=== PATIENT | female | born 1995 ===

== ENCOUNTER 2017-05-18 09:31 | Emergency (ER) | payer SELFPAY ==
[2017-05-18 09:41] VITALS: RESP 16; O2SAT 100; BMI 19.8
[2017-05-18] MEDS ORDERED: Amoxicillin-Clav 875-125 mg Tab PO STA (10:58)
--- NOTE | 2017-05-18 11:03 | ED PDOC ---
HPI: CCC, URI, Sore Throat Time Seen by Provider: 05/18/17 10:03 Chief Complaint (Nursing): ENT Problem Chief Complaint (Provider): Sore throat History Per: Patient Additional Complaint(s): 21 yo female, no PMH, presents to ED with complaints of "throat pain, difficulty swallowing, headache, fever and generalized body aches since yesterday." has been taking Ibuprofen every 8hours, no relief Past Medical History Reviewed: Nursing Documentation, Vital Signs Vital Signs: Last Vital Signs Temp 102 F H 05/18/17 09:40 Pulse 129 H 05/18/17 09:40 Resp 16 05/18/17 09:40 BP 115/65 05/18/17 09:40 Pulse Ox 100 05/18/17 09:40 - Medical History PMH: No Chronic Diseases - Surgical History Surgical History: No Surg Hx - Family History Family History: States: No Known Family Hx - Living Arrangements Living Arrangements: With Family - Social History Current smoker - smoking cessation education provided: No Ex-Smoker (has not smoked in the last 12 months): No Alcohol: None Drugs: Denies - Home Medications Home Medications: Ambulatory Orders Medication Instructions Recorded Amoxicillin/Clavulanate [Augmentin 1 tab PO BID #14 tab 05/18/17 875 MG-125 MG] Ibuprofen [Motrin] 600 mg PO Q6 #20 tab 05/18/17 - Allergies Allergies/Adverse Reactions: Allergies Allergy/AdvReac Type Severity Reaction Status Date / Time No Known Allergies Allergy Verified 05/18/17 09:51 Review of Systems ROS Statement: Except As Marked, All Systems Reviewed And Found Negative Constitutional: Positive for: Fever ENT: Positive for: Throat Pain Physical Exam - Reviewed Nursing Documentation Reviewed: Yes Vital Signs Reviewed: Yes - Physical Exam Appears: Positive for: Well, Non-toxic, No Acute Distress Head Exam: Positive for: ATRAUMATIC, NORMAL INSPECTION, NORMOCEPHALIC Skin: Positive for: Normal Color, Warm, DRY Eye Exam: Positive for: EOMI, Normal appearance, PERRL ENT: Positive for: TM Is/Are (WNL), Pharyngeal Erythema, Tonsillar Exudate, Tonsillar Swelling Neck: Positive for: Normal, Painless ROM Cardiovascular/Chest: Positive for: Regular Rate, Rhythm Respiratory: Positive for: CNT, Normal Breath Sounds Gastrointestinal/Abdominal: Positive for: Normal Exam, Bowel Sounds, Soft Back: Positive for: Normal Inspection Extremity: Positive for: Normal ROM Neurologic/Psych: Positive for: Alert, Oriented - ECG O2 Sat by Pulse Oximetry: 100 Medical Decision Making Medical Decision Making: Medicated with Acetaminophen and Augmentin Advised to take medications as directed. Return to ED with any concerns. Disposition - Clinical Impression Clinical Impression: Streptococcal sore throat - Patient ED Disposition Is Patient to be Admitted: No - Disposition Disposition: Routine/Home Disposition Time: 10:30 Condition: STABLE Prescriptions: Amoxicillin/Clavulanate [Augmentin 875 MG-125 MG] 1 tab PO BID #14 tab Ibuprofen [Motrin] 600 mg PO Q6 #20 tab Instructions: Pharyngitis (ED) - POA Present On Arrival: None
[2017-05-18] MEDS ORDERED: Amoxicillin-Clav 875-125 mg Tab PO ONE (11:11)
[2017-05-18 11:45] VITALS: BP 116/75; PULSE 92; TEMP 100.2
== END 2017-05-18 11:30 | disposition home or self-care (01) ==
LOC: H.ER 09:31
DX: J02.0 Streptococcal pharyngitis (principal)

== ENCOUNTER 2017-06-07 13:48 | Emergency (ER) | payer SELFPAY ==
[2017-06-07 13:49] VITALS: BMI 19.8
[2017-06-07 14:05] VITALS: BP 118/70; PULSE 106; RESP 18; TEMP 98; O2SAT 99
--- NOTE | 2017-06-07 14:41 | ED PDOC ---
HPI: Abdomen Time Seen by Provider: 06/07/17 14:06 Chief Complaint (Nursing): GI Problem Chief Complaint (Provider): abd pain/vomiting History Per: Patient, Family (mother) History/Exam Limitations: no limitations Onset/Duration Of Symptoms: Hrs Outside of [place] travel?: No Current Symptoms Are (Timing): Better Context: Other (abx use) Location Of Pain/Discomfort: Epigastric Associated Symptoms: Nausea, Vomiting Last Bowel Movement: Yesterday Additional Complaint(s): 22 y/o F with no significant PMHx presents to ED for abd pain, vomiting and a syncope episode after starting treatment for H.Pylori infection this morning. Patient states she took AMoxicillin, Clarythromicin, Omeprazole plus 2 tabs of Zithromax for "UTI" and right after she started feeling nauseated, with epigastric pain had 1 episode of vomiting, blurry vision followed by 1 episode of syncope that lasted around 2 min with no urinary incontinence or involuntary movements. Patient remember everything before the syncope and after. Since then she Had 2 more episodes of NBNB vomiting and epigastric pain and nausea. Abnormal Vaginal Bleeding: No Last Menstral Period: 05/19/17 Past Medical History Reviewed: Nursing Documentation, Vital Signs Vital Signs: Last Vital Signs Temp 98.0 F 06/07/17 14:01 Pulse 106 H 06/07/17 14:01 Resp 18 06/07/17 14:01 BP 118/70 06/07/17 14:01 Pulse Ox 99 06/07/17 15:06 - Medical History PMH: No Chronic Diseases - Surgical History Surgical History: No Surg Hx - Family History Family History: States: No Known Family Hx - Social History Current smoker - smoking cessation education provided: No Alcohol: None Drugs: Denies - Home Medications Home Medications: Ambulatory Orders Medication Instructions Recorded Amoxicillin/Clavulanate [Augmentin 1 tab PO BID #14 tab 05/18/17 875 MG-125 MG] Ibuprofen [Motrin] 600 mg PO Q6 #20 tab 05/18/17 Ondansetron ODT [Zofran ODT] 4 mg PO Q8H PRN #20 odt 06/07/17 - Allergies Allergies/Adverse Reactions: Allergies Allergy/AdvReac Type Severity Reaction Status Date / Time No Known Allergies Allergy Verified 05/18/17 09:51 Review of Systems ROS Statement: Except As Marked, All Systems Reviewed And Found Negative Gastrointestinal: Positive for: Nausea, Vomiting, Abdominal Pain Physical Exam - Reviewed Nursing Documentation Reviewed: Yes Vital Signs Reviewed: Yes - Physical Exam Appears: Positive for: Non-toxic, No Acute Distress Head Exam: Positive for: ATRAUMATIC Skin: Positive for: Warm Eye Exam: Positive for: EOMI, PERRL Cardiovascular/Chest: Positive for: Regular Rate, Rhythm. Negative for: Gallop , Murmur Respiratory: Positive for: Normal Breath Sounds. Negative for: Crackles, Wheezing Gastrointestinal/Abdominal: Positive for: Soft, Tenderness (Epigastric). Negative for: Distended, Guarding Extremity: Positive for: Normal ROM. Negative for: Tenderness Neurologic/Psych: Positive for: Alert, Oriented. Negative for: Motor/Sensory Deficits - Laboratory Results Result Diagrams: 06/07/17 14:41 06/07/17 14:41 - ECG O2 Sat by Pulse Oximetry: 99 - Progress ED Course And Treament: Blood work and Abd US WNL Patient pain and nausea resolved after IV fluids and Zofran She will be DC from hosp and F/U as outpatient at [facility] C/W Omeprazole PO. Medical Decision Making Medical Decision Makin22 y/o F presents for abd pain associated with nausea and vomiting Acute abd pain POss acute gastritis R/O pancreatitis and Cholescystitis IV fluids ZOfran IV CBC, CMP, Lipase Abd US S/P Vasovagal Syncope resolved. Patient asymptomatic at the time of DC from ED Disposition - Clinical Impression Clinical Impression: Gastritis - Patient ED Disposition Is Patient to be Admitted: No - Disposition Referrals: [facility] [Outside] Disposition: Routine/Home Disposition Time: 17:10 Condition: IMPROVED Prescriptions: Ondansetron ODT [Zofran ODT] 4 mg PO Q8H PRN #20 odt PRN Reason: Nausea/Vomiting Instructions: Gastritis (ED) Forms: [employer] (Estonian) Print Language: VIETNAMESE
[2017-06-07] MEDS ORDERED: Sodium Chloride 0.9% 1,000 ML IV SCH (14:45)
[2017-06-07 14:52] LABS: HEMOGLOBIN 12.4 g/dL (12.0-16.0); MEAN CELL VOLUME 83.4 fl (81.0-99.0); MEAN CORPUSCULAR HEMOGLOBIN 27.4 pg (27.0-31.0); MEAN CORPUSCULAR HGB CONC 32.8 g/dL (33.0-37.0); RBC 4.53 Mil/uL (3.80-5.20); RED CELL DISTRIBUTION WIDTH 14.1 % (11.5-14.5); WHITE BLOOD COUNT 9.3 K/uL (4.8-10.8)
[2017-06-07 15:02] LABS: ALB/GLOB RATIO 1.5 (1.0-2.1); ALBUMIN 4.7 g/dL (3.5-5.0); ALT/SGPT 34 U/L (9-52); AST/SGOT 20 U/L (14-36); BLOOD UREA NITROGEN 13 mg/dl (7-17); CALCIUM 9.7 mg/dL (8.4-10.2); GFR AFRICAN-AMERICAN > 60; GFR NON-AFRICAN AMERICAN > 60; LIPASE 225 U/L (23-300)
--- NOTE | 2017-06-07 16:51 | US ---
HISTORY: Abd pain/vomiting COMPARISON: None. TECHNIQUE: Sonographic evaluation of the right upper quadrant of the abdomen. FINDINGS: LIVER: Measures 12.7 cm in length. Normal echogenicity of the liver parenchyma. No mass. No intrahepatic bile duct dilatation. GALLBLADDER: Unremarkable. No gallstones. COMMON BILE DUCT: Measures 2.0 mm. No stones. No dilatation. PANCREAS: Unremarkable as visualized. No mass. No ductal dilatation. RIGHT KIDNEY: Measures 9.7 cm in length. Normal echogenicity. No calculus, mass, or hydronephrosis. AORTA: No aneurysmal dilatation. IVC: Unremarkable. OTHER FINDINGS: None . IMPRESSION: Unremarkable right upper quadrant ultrasound as defined above.
== END 2017-06-07 17:30 | disposition home or self-care (01) ==
LOC: H.ER 13:48
DX: K29.70 Gastritis, unspecified, without bleeding (principal)

== ENCOUNTER 2017-10-28 07:51 | Emergency (ER) | payer SELFPAY ==
[2017-10-28 07:55] VITALS: TEMP 98
[2017-10-28 07:56] VITALS: BMI 21.1
[2017-10-28 08:02] VITALS: O2SAT 98
[2017-10-28] MEDS ORDERED: Sodium Chloride 0.9% 1,000 ML IV STA (08:20)
--- NOTE | 2017-10-28 08:22 | ED PDOC ---
HPI: Abdomen Time Seen by Provider: 10/28/17 08:03 Chief Complaint (Nursing): Abdominal Pain Chief Complaint (Provider): Abdominal Pain History Per: Patient History/Exam Limitations: no limitations Onset/Duration Of Symptoms: Hrs Current Symptoms Are (Timing): Still Present Additional Complaint(s): Gema Arizmendi is a 22 year old female that presents to the ED with a chief complaint of nonbloody vomiting and nonbloody diarrhea that began yesterday. Patient denies any fever or genitourinary symptoms. Past Medical History Reviewed: Historical Data, Nursing Documentation, Vital Signs Vital Signs: Last Vital Signs Temp 98 F 10/28/17 10:45 Pulse 70 10/28/17 10:45 Resp 20 10/28/17 10:45 BP 112/74 10/28/17 10:45 Pulse Ox 98 10/28/17 10:45 - Medical History PMH: No Chronic Diseases - Surgical History Surgical History: No Surg Hx - Family History Family History: States: Unknown Family Hx - Immunization History Hx Tetanus Toxoid Vaccination: Yes - Home Medications Home Medications: Ambulatory Orders Medication Instructions Recorded Amoxicillin/Clavulanate [Augmentin 1 tab PO BID #14 tab 05/18/17 875 MG-125 MG] Ibuprofen [Motrin] 600 mg PO Q6 #20 tab 05/18/17 Ondansetron ODT [Zofran ODT] 4 mg PO Q8H PRN #20 odt 06/07/17 Famotidine [Pepcid] 20 mg PO BID #20 tab 10/28/17 Ondansetron [Zofran Odt] 4 mg PO Q8H PRN #15 odt 10/28/17 - Allergies Allergies/Adverse Reactions: Allergies Allergy/AdvReac Type Severity Reaction Status Date / Time No Known Allergies Allergy Verified 10/28/17 08:00 Review of Systems Constitutional: Negative for: Fever Gastrointestinal: Positive for: Vomiting (nonbloody), Diarrhea (nonbloody) Genitourinary Female: Negative for: Dysuria, Frequency, Incontinence, Hematuria , Vaginal Discharge, Vaginal Bleeding Physical Exam - Reviewed Nursing Documentation Reviewed: Yes Vital Signs Reviewed: Yes - Physical Exam Appears: Positive for: Non-toxic, No Acute Distress Head Exam: Positive for: ATRAUMATIC, NORMOCEPHALIC Skin: Positive for: Normal Color, Warm Eye Exam: Positive for: Normal appearance, EOMI, PERRL Cardiovascular/Chest: Positive for: Regular Rate, Rhythm. Negative for: Murmur Respiratory: Positive for: Normal Breath Sounds. Negative for: Wheezing Gastrointestinal/Abdominal: Positive for: Tenderness (RUQ and mild epigastric TTP). Negative for: Normal Exam, Guarding, Rebound Back: Positive for: Normal Inspection. Negative for: L CVA Tenderness, R CVA Tenderness Extremity: Positive for: Normal ROM. Negative for: Tenderness, Swelling Neurologic/Psych: Positive for: Alert, Oriented. Negative for: Motor/Sensory Deficits - Laboratory Results Result Diagrams: 10/28/17 08:28 10/28/17 08:28 - ECG O2 Sat by Pulse Oximetry: 98 (RA) Pulse Ox Interpretation: Normal Medical Decision Making Medical Decision Making: Impression: Gastroenteritis vs. Cholecystitis vs. Cholelithiasis Plan: * US Abdomen Limited * CMP * CBC * Lipase * Urine Dip * Urine Preg * Zofran 4 mg Inj * NaCl 1000 mLs at 1000 mLs/hr * Reevaluation US Abdomen FINDINGS: LIVER: Measures 14.9 cm in length. Patent portal vein. Portal venous flow: Hepatopetal. Unremarkeable echogenicity of the liver parenchyma. No mass. No intrahepatic bile duct dilatation. GALLBLADDER: Unremarkable. No gallstones. COMMON BILE DUCT: Measures 2.8 mm. No stones. No dilatation. PANCREAS: Unremarkable as visualized. No mass. No ductal dilatation. RIGHT KIDNEY: Measures 3.9 x 5.9 x 9.8 cm in length. Normal echogenicity. No calculus, mass, or hydronephrosis. AORTA: No aneurysmal dilatation. IVC: Unremarkable. OTHER FINDINGS: None . IMPRESSION: No significant or acute findings to account for/ related to the clinical presentation. No significant interval change compared to the prior examination(s ). Scribe Attestation: Documented by Nayana Velasquez, acting as a scribe for Kayy Gutierrez MD. Provider Scribe Attestation: All medical record entries made by the Scribe were at my direction and personally dictated by me. I have reviewed the chart and agree that the record accurately reflects my personal performance of the history, physical exam, medical decision making, and the department course for this patient. I have also personally directed, reviewed, and agree with the discharge instructions and disposition. Disposition - Clinical Impression Clinical Impression: Gastroenteritis - Disposition Referrals: formerly [facility] [Outside] Disposition: Routine/Home Disposition Time: 10:34 Condition: IMPROVED Prescriptions: Famotidine [Pepcid] 20 mg PO BID #20 tab Ondansetron [Zofran Odt] 4 mg PO Q8H PRN #15 odt PRN Reason: Nausea/Vomiting Instructions: Gastroenteritis (ED) Forms: [employer] (Paraguayan) Print Language: BAHRAINI
[2017-10-28 08:36] LABS: BASO % 0.2 % (0.0-2.0); EOS # 0.2 K/uL (0.0-0.7); EOS % 1.4 % (0.0-4.0); HEMOGLOBIN 13.2 g/dL (12.0-16.0); LYMPH # 0.9 K/uL (1.0-4.3); MEAN CORPUSCULAR HGB CONC 32.2 g/dL (33.0-37.0); MEAN PLATELET VOLUME 8.5 fl (7.2-11.7); MONO # 0.9 K/uL (0.0-0.8); MONO % 6.5 % (0.0-10.0); NEUT # 12.3 K/uL (1.8-7.0); NEUT % 85.9 % (50.0-75.0); PLATELET COUNT 336 K/uL (130-400); RBC 4.89 Mil/uL (3.80-5.20); RED CELL DISTRIBUTION WIDTH 13.9 % (11.5-14.5); WHITE BLOOD COUNT 14.3 K/uL (4.8-10.8)
[2017-10-28 08:42] LABS: ALT/SGPT 35 U/L (9-52); AST/SGOT 22 U/L (14-36); BLOOD UREA NITROGEN 19 mg/dl (7-17); CALCIUM 9.5 mg/dL (8.4-10.2); GFR AFRICAN-AMERICAN > 60; GFR NON-AFRICAN AMERICAN > 60; LIPASE 133 U/L (23-300)
[2017-10-28 08:46] LABS: ALB/GLOB RATIO 1.4 (1.0-2.1)
[2017-10-28 09:28] LABS: ANISOCYTOSIS SLIGHT; BANDS 1 % (0-2); BASOPHIL 1 % (0-2); LYMPHOCYTE 7 % (20-50); PLATELET ESTIMATE NORMAL (NORMAL); TOTAL CELLS COUNTED 100
[2017-10-28 09:31] LABS: MONOCYTE 6 % (0-10); NEUTROPHIL 85 % (42-75)
--- NOTE | 2017-10-28 10:08 | US ---
HISTORY: Epigastric/RUQ pain COMPARISON: 04/07/2017 TECHNIQUE: Sonographic evaluation of the right upper quadrant of the abdomen. FINDINGS: LIVER: Measures 14.9 cm in length. Patent portal vein. Portal venous flow: Hepatopetal. Unremarkeable echogenicity of the liver parenchyma. No mass. No intrahepatic bile duct dilatation. GALLBLADDER: Unremarkable. No gallstones. COMMON BILE DUCT: Measures 2.8 mm. No stones. No dilatation. PANCREAS: Unremarkable as visualized. No mass. No ductal dilatation. RIGHT KIDNEY: Measures 3.9 x 5.9 x 9.8 cm in length. Normal echogenicity. No calculus, mass, or hydronephrosis. AORTA: No aneurysmal dilatation. IVC: Unremarkable. OTHER FINDINGS: None . IMPRESSION: No significant or acute findings to account for/ related to the clinical presentation. No significant interval change compared to the prior examination(s).
[2017-10-28 10:46] VITALS: BP 112/74; PULSE 70; RESP 20
== END 2017-10-28 10:46 | disposition home or self-care (01) ==
LOC: H.ER 07:51
DX: K52.9 Noninfective gastroenteritis and colitis, unspecified (principal)
CPT/HCPCS: 76705; 80053; 81025; 83690; 85025; 96360; 99283; J2405; J7040

== ENCOUNTER 2018-02-21 09:24 | Emergency (ER) | payer SELFPAY ==
[2018-02-21 09:24] VITALS: BMI 21.1
[2018-02-21] MEDS ORDERED: Alum-Mag Hydrox-Simethicone Susp (30 mL) PO STA (10:09)
[2018-02-21] MEDS ORDERED: Alum-Mag Hydrox-Simethicone Susp (30 mL) ONE (10:21)
[2018-02-21 10:38] LABS: BASO # 0.1 K/uL (0.0-0.2); BASO % 0.9 % (0.0-2.0); EOS # 4.1 K/uL (0.0-0.7); EOS % 37.9 % (0.0-4.0); HEMOGLOBIN 13.2 g/dL (12.0-16.0); LYMPH # 2.2 K/uL (1.0-4.3); MEAN CELL VOLUME 84.2 fl (81.0-99.0); MEAN CORPUSCULAR HEMOGLOBIN 27.7 pg (27.0-31.0); MEAN CORPUSCULAR HGB CONC 32.8 g/dL (33.0-37.0); MEAN PLATELET VOLUME 8.7 fl (7.2-11.7); MONO # 0.6 K/uL (0.0-0.8); MONO % 5.4 % (0.0-10.0); NEUT # 3.7 K/uL (1.8-7.0); NEUT % 34.8 % (50.0-75.0); NRBC % 0.1 % (0.0-0.0); PLATELET COUNT 290 K/uL (130-400); RBC 4.77 Mil/uL (3.80-5.20); RED CELL DISTRIBUTION WIDTH 13.8 % (11.5-14.5); WHITE BLOOD COUNT 10.7 K/uL (4.8-10.8)
[2018-02-21 10:42] LABS: ALB/GLOB RATIO 1.3 (1.0-2.1); ALBUMIN 4.5 g/dL (3.5-5.0); ALT/SGPT 33 U/L (9-52); AST/SGOT 23 U/L (14-36); BLOOD UREA NITROGEN 16 mg/dl (7-17); CALCIUM 9.5 mg/dL (8.4-10.2); GFR AFRICAN-AMERICAN > 60; GFR NON-AFRICAN AMERICAN > 60; LIPASE 145 U/L (23-300)
--- NOTE | 2018-02-21 11:24 | ED PDOC ---
HPI: Abdomen Time Seen by Provider: 02/21/18 09:48 Chief Complaint (Nursing): Abdominal Pain Chief Complaint (Provider): Abdominal Pain History Per: Patient History/Exam Limitations: no limitations Onset/Duration Of Symptoms: Days (x 1) Location Of Pain/Discomfort: Epigastric Additional Complaint(s): 22 years old female with history of gastritis presents to the ED complaining of constant epigastric abdominal pain associated with vomiting onset yesterday. Patient reports experiencing two episodes of non bloody, bilious vomiting yesterday. She admits taking omeprazole as usual for her gastritis but pain persisted. She denies any fever, diarrhea or urinary problems PMD: [facility] Past Medical History Reviewed: Historical Data, Nursing Documentation, Vital Signs Vital Signs: Last Vital Signs Temp 98.5 F 02/21/18 09:42 Pulse 71 02/21/18 09:42 Resp 16 02/21/18 09:42 BP 105/67 02/21/18 09:42 Pulse Ox 99 02/21/18 11:34 - Medical History PMH: Gastritis - Surgical History Surgical History: No Surg Hx - Family History Family History: States: Unknown Family Hx - Social History Current smoker - smoking cessation education provided: No Alcohol: None Drugs: Denies - Immunization History Hx Tetanus Toxoid Vaccination: Yes - Home Medications Home Medications: Ambulatory Orders Medication Instructions Recorded Amoxicillin/Clavulanate [Augmentin 1 tab PO BID #14 tab 05/18/17 875 MG-125 MG] Ibuprofen [Motrin] 600 mg PO Q6 #20 tab 05/18/17 Ondansetron ODT [Zofran ODT] 4 mg PO Q8H PRN #20 odt 06/07/17 Ondansetron [Zofran Odt] 4 mg PO Q8H PRN #15 odt 10/28/17 Famotidine [Pepcid] 20 mg PO BID #20 tab 02/21/18 Sucralfate [Carafate] 1 gm PO TID #21 oral.susp 02/21/18 - Allergies Allergies/Adverse Reactions: Allergies Allergy/AdvReac Type Severity Reaction Status Date / Time No Known Allergies Allergy Verified 10/28/17 08:00 Review of Systems ROS Statement: Except As Marked, All Systems Reviewed And Found Negative Constitutional: Negative for: Fever Gastrointestinal: Positive for: Vomiting (non bloody/bilious), Abdominal Pain ( epigastric). Negative for: Diarrhea, Melena Genitourinary Female: Negative for: Dysuria, Hematuria Physical Exam - Reviewed Nursing Documentation Reviewed: Yes Vital Signs Reviewed: Yes - Physical Exam Appears: Positive for: Non-toxic, No Acute Distress Head Exam: Positive for: ATRAUMATIC, NORMOCEPHALIC Skin: Positive for: Normal Color, Warm, Dry Eye Exam: Positive for: Normal appearance, EOMI, PERRL ENT: Positive for: Normal ENT Inspection Neck: Positive for: Normal, Painless ROM, Supple Cardiovascular/Chest: Positive for: Regular Rate, Rhythm. Negative for: Murmur Respiratory: Positive for: Normal Breath Sounds. Negative for: Respiratory Distress Gastrointestinal/Abdominal: Positive for: Soft, Tenderness (epigastric). Negative for: Distended Back: Positive for: Normal Inspection Extremity: Positive for: Normal ROM (upper and lower). Negative for: Tenderness , Swelling Neurologic/Psych: Positive for: Alert, Oriented - Laboratory Results Result Diagrams: 02/21/18 10:22 02/21/18 10:22 - ECG O2 Sat by Pulse Oximetry: 99 (RA) Pulse Ox Interpretation: Normal - Progress Re-evaluation Time: 12:45 Condition: Re-examined, Improved Medical Decision Making Medical Decision Making: Time: 1030 Initial Impression: Epigastric pain. Differential includes but not limited to acute gastritis, pancreatitis and cholecystitis. Initial Plan: --CMP --Lipase --Urine --Urine Dipstick --CBC --Lidocaine 2% Viscous 15 ml PO --Maalox Plus 30 mL PO --Protonix Inj 40 mg IVP Ultrasound results in September 2017 show negative for gallstones. Scribe Attestation: Documented by Rosemary Lynne, acting as a scribe for Umang Alberto MD. Provider Scribe Attestation: All medical record entries made by the Scribe were at my direction and personally dictated by me. I have reviewed the chart and agree that the record accurately reflects my personal performance of the history, physical exam, medical decision making, and the department course for this patient. I have also personally directed, reviewed, and agree with the discharge instructions and disposition. Disposition - Clinical Impression Clinical Impression: Abdominal pain - Patient ED Disposition Is Patient to be Admitted: No Doctor Will See Patient In The: Office Counseled Patient/Family Regarding: Studies Performed, Diagnosis, Need For Followup - Disposition Referrals: [facility] [Outside] Disposition: Routine/Home Disposition Time: 12:45 Condition: GOOD Additional Instructions: Take your medications as instructed. Follow up with your PCP in 2-3 days. Prescriptions: Famotidine [Pepcid] 20 mg PO BID #20 tab Sucralfate [Carafate] 1 gm PO TID #21 oral.susp Instructions: Stomach Ache and Stomach Upset
[2018-02-21 11:53] LABS: EOSINOPHIL 28 % (0-7); LYMPHOCYTE 30 % (20-50); MONOCYTE 6 % (0-10); NEUTROPHIL 36 % (42-75); PLATELET ESTIMATE NORMAL (NORMAL); TOTAL CELLS COUNTED 100
[2018-02-21 13:08] VITALS: BP 127/76; PULSE 80; RESP 19; TEMP 96.7; O2SAT 98
== END 2018-02-21 13:08 | disposition home or self-care (01) ==
LOC: H.ER 09:24
DX: R10.13 Epigastric pain (principal); R11.10 Vomiting, unspecified
CPT/HCPCS: 80053; 81025; 83690; 85025; 96374; 99283; C9113

== ENCOUNTER 2018-02-24 13:21 | Emergency (ER) | payer SELFPAY ==
[2018-02-24 13:21] VITALS: BMI 21.1
[2018-02-24 13:51] VITALS: BP 110/66; PULSE 75; RESP 16; TEMP 98.2; O2SAT 97
[2018-02-24] MEDS ORDERED: Alum-Mag Hydrox-Simethicone Susp (30 mL) PO STA (14:13)
--- NOTE | 2018-02-24 14:13 | ED PDOC ---
HPI: Abdomen Time Seen by Provider: 02/24/18 14:00 Chief Complaint (Nursing): Abdominal Pain Chief Complaint (Provider): Continued epigatric pain History Per: Patient History/Exam Limitations: no limitations Onset/Duration Of Symptoms: Days Outside of [place] travel?: No Current Symptoms Are (Timing): Still Present Location Of Pain/Discomfort: RUQ, Epigastric Quality Of Discomfort: Sharp, Burning Associated Symptoms: Nausea, Loss Of Appetite. denies: Fever, Chills, Vomiting , Diarrhea, Back Pain, Chest Pain, Constipation, Urinary Symptoms Exacerbating Factors: None Alleviating Factors: None Additional Complaint(s): Pt states she was given Rx for pepcid but only took it yesterday. Pt states she had similar in september but never saw GI. Pt was seen for same 2 days ago. No fever/chills. Past Medical History Reviewed: Historical Data, Nursing Documentation, Vital Signs Vital Signs: Last Vital Signs Temp 98.2 F 02/24/18 13:48 Pulse 75 02/24/18 13:48 Resp 16 02/24/18 13:48 BP 110/66 02/24/18 13:48 Pulse Ox 97 02/24/18 14:14 - Medical History PMH: Gastritis - Surgical History Surgical History: No Surg Hx - Family History Family History: States: Unknown Family Hx - Immunization History Hx Tetanus Toxoid Vaccination: Yes - Home Medications Home Medications: Ambulatory Orders Medication Instructions Recorded Amoxicillin/Clavulanate [Augmentin 1 tab PO BID #14 tab 05/18/17 875 MG-125 MG] Ibuprofen [Motrin] 600 mg PO Q6 #20 tab 05/18/17 Ondansetron ODT [Zofran ODT] 4 mg PO Q8H PRN #20 odt 06/07/17 Ondansetron [Zofran Odt] 4 mg PO Q8H PRN #15 odt 10/28/17 Famotidine [Pepcid] 20 mg PO BID #20 tab 02/21/18 Sucralfate [Carafate] 1 gm PO TID #21 oral.susp 02/21/18 Mag Hydrox/Aluminum Hyd/Simeth 30 ml PO Q6H PRN #240 ml 02/24/18 [Maalox Advanced Suspension] - Allergies Allergies/Adverse Reactions: Allergies Allergy/AdvReac Type Severity Reaction Status Date / Time No Known Allergies Allergy Verified 10/28/17 08:00 Review of Systems ROS Statement: Except As Marked, All Systems Reviewed And Found Negative Constitutional: Negative for: Fever, Chills Gastrointestinal: Positive for: Nausea, Abdominal Pain. Negative for: Vomiting , Diarrhea Physical Exam - Reviewed Nursing Documentation Reviewed: Yes Vital Signs Reviewed: Yes - Physical Exam Appears: Positive for: Well, Non-toxic, No Acute Distress Head Exam: Positive for: ATRAUMATIC, NORMAL INSPECTION, NORMOCEPHALIC Skin: Positive for: Normal Color, Warm, DRY Eye Exam: Positive for: Normal appearance ENT: Positive for: Normal ENT Inspection Neck: Positive for: Normal, Painless ROM Cardiovascular/Chest: Positive for: Regular Rate, Rhythm Respiratory: Positive for: Normal Breath Sounds. Negative for: Accessory Muscle Use, Respiratory Distress Gastrointestinal/Abdominal: Positive for: Soft, Tenderness (Epigastric, RUQ). Negative for: Normal Exam Back: Positive for: Normal Inspection Extremity: Positive for: Normal ROM Neurologic/Psych: Positive for: Alert, Oriented - Laboratory Results Result Diagrams: 02/24/18 15:25 02/24/18 15:25 - ECG O2 Sat by Pulse Oximetry: 97 Disposition - Clinical Impression Clinical Impression: Gastritis - Patient ED Disposition Is Patient to be Admitted: No Counseled Patient/Family Regarding: Diagnosis, Need For Followup, Rx Given - Disposition Referrals: Haresh Lu MD [Medical Doctor] - Disposition: Routine/Home Disposition Time: 17:38 Condition: GOOD Additional Instructions: Please take pepcid daily. Prescriptions: Mag Hydrox/Aluminum Hyd/Simeth [Maalox Advanced Suspension] 30 ml PO Q6H PRN # 240 ml PRN Reason: Abdominal pain Instructions: Gastritis (DC) Forms: [employer] (Estonian)
[2018-02-24] MEDS ORDERED: Atrop/Hyos/Scop/PhenoB Elixir PO ONE (14:30)
[2018-02-24] MEDS ORDERED: Alum-Mag Hydrox-Simethicone Susp (30 mL) ONE (14:49)
--- NOTE | 2018-02-24 15:07 | US ---
HISTORY: epigastric, ruq pain COMPARISON: None. TECHNIQUE: Sonographic evaluation of the right upper quadrant of the abdomen. FINDINGS: LIVER: Measures 15 cm in length. Normal echogenicity of the liver parenchyma. No mass. No intrahepatic bile duct dilatation. GALLBLADDER: Unremarkable. No gallstones. COMMON BILE DUCT: Measures 1 mm. No stones. No dilatation. PANCREAS: Not well-visualized. RIGHT KIDNEY: Measures 9.9 x 4.0 x 5.1 cm in length. Normal echogenicity. No calculus, mass, or hydronephrosis. AORTA: No aneurysmal dilatation. IVC: Unremarkable. OTHER FINDINGS: None . IMPRESSION: Unremarkable right upper quadrant ultrasound
[2018-02-24 15:43] LABS: BASO # 0.1 K/uL (0.0-0.2); EOS # 3.5 K/uL (0.0-0.7); EOS % 27.8 % (0.0-4.0); HEMOGLOBIN 14.3 g/dL (12.0-16.0); LYMPH # 2.8 K/uL (1.0-4.3); MEAN CELL VOLUME 84.4 fl (81.0-99.0); MEAN CORPUSCULAR HGB CONC 33.2 g/dL (33.0-37.0); MEAN PLATELET VOLUME 8.9 fl (7.2-11.7); MONO # 0.8 K/uL (0.0-0.8); NEUT # 5.5 K/uL (1.8-7.0); NEUT % 43.2 % (50.0-75.0); PLATELET COUNT 312 K/uL (130-400); RBC 5.11 Mil/uL (3.80-5.20); RED CELL DISTRIBUTION WIDTH 13.2 % (11.5-14.5); WHITE BLOOD COUNT 12.7 K/uL (4.8-10.8)
[2018-02-24 15:51] LABS: ALB/GLOB RATIO 1.2 (1.0-2.1); ALBUMIN 5.1 g/dL (3.5-5.0); ALT/SGPT 26 U/L (9-52); AST/SGOT 33 U/L (14-36); BLOOD UREA NITROGEN 17 mg/dl (7-17); CALCIUM 10.2 mg/dL (8.4-10.2); GFR AFRICAN-AMERICAN > 60; GFR NON-AFRICAN AMERICAN > 60; LIPASE 273 U/L (23-300)
[2018-02-24 17:36] LABS: EOSINOPHIL 19 % (0-7); LYMPHOCYTE 26 % (20-50); MONOCYTE 4 % (0-10); NEUTROPHIL 48 % (42-75); REACTIVE LYMPHOCYTES 3 % (0-0); TOTAL CELLS COUNTED 100
[2018-02-24 17:37] LABS: ANISOCYTOSIS SLIGHT; LARGE PLATELETS PRESENT; OVALOCYTES SLIGHT; PLATELET ESTIMATE NORMAL (NORMAL)
== END 2018-02-24 18:50 | disposition home or self-care (01) ==
LOC: H.ER 13:21
DX: K29.70 Gastritis, unspecified, without bleeding (principal)